=== PATIENT | female | born 1955 | race Caucasian/White ===

== ENCOUNTER 2024-10-03 17:22 | Emergency (ER) | payer MEDICARE, OTHER, SELFPAY ==
--- OUTSIDE RECORDS SUMMARY | 2024-10-03 17:23 | XMS_ITS | Clinical Summary ---
Author Organization Formerly [facility] Address [id number] [place] [id number] Phone Care Team Providers Care Seasonal Sales Associate Name Role Phone Fabian Toussaint MD Primary Care Provider [phone] Allergies No known active allergies Medications metoprolol tartrate (LOPRESSOR) 100 mg tablet Take 100 mg by mouth 2 times daily. Active citalopram (CeleXA) 20 mg tablet Take 20 mg by mouth daily at bedtime. Active raNITIdine (ZANTAC) 150 mg tablet Take 150 mg by mouth 2 times daily. Active ibuprofen (MOTRIN) 800 mg tablet Take 800 mg by mouth every 6 hours as needed for Pain, Mild. Active Social History Tobacco Use Types Packs/Day Years Used Date Smoking Tobacco: Never Smokeless Tobacco: Never Tobacco Cessation:Counseling Given: No Alcohol Use Standard Drinks/Week Comments No 0 (1 standard drink = 0.6 oz pur e alcohol) Comments Unknown Sex and Gender Information Value Date Recorded Sex Assigned at Not on file Legal Sex Female 6:23 AM LAP CUTTER Gender Identity Not on file Sexual Orientation Not on file Last Filed Vital Signs Vital Sign Reading Time Taken Comments Blood Pressure 159/90 03/20/2018 10:44 AM LAP CUTTER Pulse 81 03/20/2018 10:44 AM LAP CUTTER Temperature 36.5 C (97.7 F) 03/20/2018 10:29 AM LAP CUTTER Respiratory Rate 22 03/20/2018 10:44 AM LAP CUTTER Oxygen Saturation 97% 03/20/2018 10:44 AM LAP CUTTER Inhaled Oxygen Concentration - - Weight 107 kg (236 lb) 03/20/2018 9:51 AM LAP CUTTER Height 160 cm (5' 3) 03/20/2018 9:51 AM LAP CUTTER Body Mass Index 41.81 03/20/2018 9:51 AM LAP CUTTER Plan of Treatment Health Maintenance Due Date Last Done Comments DTAP/TDAP/TD VACCINES (1 - Tdap) 09/11/1975 BREAST CANCER SCREENING 1996 FIT-DNA Q 3 years 2001 FIT/FOBT Q 1 year 2001 Flex Sig/CT Colonography Q 5 years 2001 PNEUMOCOCCAL VACCINE 50+ YEA RS (1 of 1 - PCV) 2006 ZOSTER VACCINE (1 of 2) 2006 OSTEOPOROSIS SCREENING 2021 INFLUENZA VACCINE (#1) 2024 COLORECTAL SCREENING 03/20/2028 03/20/2018, 03/20/20 Colorectal Cancer Screening 03/20/2028 RSV VACCINE (60+ or ) (1 - 1-dose 75+ series) 09/11/2031 Procedures Procedure Name Priority Date/Time Associated Diagnosis Comments COLONOSCOPY REPORT 03/20/2018 10 :32 AM LAP CUTTER from Last 3 Months or Most Recently Relevant to Health Maintenance Results * COLONOSCOPY REPORT (03/20/2018 10:32 AM LAP CUTTER) Narrative Procedure Note Alexander Mao MD - 03/20/2018 10:31 AM CST [facility] Endoscopy Patient Name: Susan Honeycutt Procedure Date: 03/20/2018 Date of : 1955 Admit Type: Outpatient Attending MD: Alexander Mao MD Procedure: Colonoscopy Indications: Screening for colorectal malignant neoplasm Providers: Alexander Mao MD Referring MD: Fabian Toussaint MD Medicines: Monitored Anesthesia Care Complications: No immediate complications. Procedure: Informed consent was obtained for the procedure, including moderate sedation after risks were discussed. Based on the pre-procedure assessment, including review of the patient's medical history, medications, allergies, and review of systems, the patient was deemed to be an appropriate candidate for sedation. A timeout was performed. Continuous ECG monitoring, pulse oximetry, blood pressure monitoring, and direct observation were performed. The Colonoscope was introduced through the anus and advanced to the cecum, identified by appendiceal orifice and ileocecal valve. The colonoscopy was performed without difficulty. The patient tolerated the procedure well. The quality of the bowel preparation was good. Findings: The perianal and digital rectal examinations were normal. Two sessile polyps were found in the proximal ascending colon, mid ascending colon, at 80 cm proximal to the anus and at 90 cm proximal to the anus. The polyps were 3 to 4 mm in size. These polyps were removed with a cold snare. Resection and retrieval were complete. Multiple small and large-mouthed diverticula were found in the sigmoid colon, proximal sigmoid colon, mid sigmoid colon and distal sigmoid colon. The exam was otherwise without abnormality on direct and retroflexion views. Impression: - Two 3 to 4 mm polyps in the proximal ascending colon, in the mid ascending colon, at 80 cm proximal to the anus and at 90 cm proximal to the anus, removed with a cold snare. Resected and retrieved. - Diverticulosis in the sigmoid colon, in the proximal sigmoid colon, in the mid sigmoid colon and in the distal sigmoid colon. - The examination was otherwise normal on direct and retroflexion views. Recommendation: - Discharge patient to home (ambulatory). - Repeat colonoscopy in 5 years for screening purposes. - Return to primary care physician as previously scheduled. Procedure Code(s): --- Professional --- 47554, Colonoscopy, flexible; with removal of tumor(s), polyp(s), or other lesion(s) by snare technique CPT copyright 2016 [employer]. All rights reserved. The codes documented in this report are preliminary and upon boring machine operator horizontal review may be revised to meet current compliance requirements. Alexander Mao MD 03/20/2018 10:31:20 AM Number of Addenda: [id number] [place] [address] Alexander Mao MD GI PROCEDURE ORDERABLES Fi nal Result from Last 3 Months or Most Recently Relevant to Health Maintenance Insurance Care Teams Seasonal Sales Associate Relationship Specialty Start Date End Date Fabian Toussaint MD [facility] [place] [address] PCP - General Family Practice 03/13/18
--- OUTSIDE RECORDS SUMMARY | 2024-10-03 17:24 | XMS_ITS | Clinical Summary ---
Author Organization [facility] Address [address] [place] [id number] Phone Care Team Providers Care Senior Patrol Agent Name Role Phone Fabian Toussaint Primary Care Provider [phone] Allergies Active Allergy Reactions Criticality Noted Date Comments Bee Venom Anaphylaxis 01/29/2020 Acetaminophen Hives 01/29/2020 Medications citalopram (CeleXA) 20 MG Tablet Take 20 mg by mouth. Active ibuprofen (MOTRIN) 800 MG Tablet Take 800 mg by mouth. Active metoprolol Succinate (TOPROL-XL) 100 MG TABLET SR 24 HR TAKE 1 TABLET BY MOUTH ONCE DAILY 12/23/2019 Active traMADol (ULTRAM) 50 MG Tablet TAKE 1 TABLET BY MOUTH ONCE DAILY NEEDED FOR PAIN 12/23/2019 Active Active Problems No known active problems Social History Tobacco Use Types Packs/Day Years Used Date Smoking Tobacco: Never Smokeless Tobacco: Never Comments No Sex and Gender Information Value Date Recorded Sex Assigned at Not on file Legal Sex Female 7:53 PM CDT Gender Identity Not on file Sexual Orientation Not on file Last Filed Vital Signs Vital Sign Reading Time Taken Comments Blood Pressure 120/82 01/29/2020 1:44 PM MANAGER ORACLE RETAIL Pulse 62 01/29/2020 1:44 PM MANAGER ORACLE RETAIL Temperature 35.9 C (96.7 F) 01/29/2020 1:44 PM MANAGER ORACLE RETAIL Respiratory Rate 20 01/29/2020 1:44 PM MANAGER ORACLE RETAIL Oxygen Saturation 96% 01/29/2020 1:44 PM MANAGER ORACLE RETAIL Inhaled Oxygen Concentration - - Weight - - Height - - Body Mass Index - - Plan of Treatment Health Maintenance Due Date Last Done Comments Hepatitis C Virus (HCV) Screening 1955 TdaP Immunization 1955 Cologuard 2001 Colonoscopy 2001 Colorectal Cancer Screening 2001 Immunochemical Fecal Occult Blood 2001 Pneumococcal Immunization (5 0+ years) (1 of 1 - PCV) 2006 Zoster Immunization (1 of 2) 2006 SARS-COV-2 Immunization (4 - 2023- season) 2023 03/30/2021, 07/13/2020, 06/15/2020 Influenza Immunization (#1) 2024 Respiratory Syncytial Virus (RSV) Immunization (Adult) (1 - 1-dose 75+ series) 09/11/2031 Hepatitis B Immunization Aged Out No longer eligible based on patient's age to complete this topic Human Papillomavirus (HPV) Immunization Aged Out No longer eligible b ased on patient's age to complete this topic Meningococcal Immunization (ACWY) Aged Out No longer eligible b ased on patient's age to complete this topic Rotavirus Immunization Aged Out No lo nger eligible based on patient's age to complete this topic Insurance Care Teams Senior Patrol Agent Relationship Specialty Start Date End Date Fabian Toussaint [address] [place] [id number] PCP - General 01/29/20
--- OUTSIDE RECORDS SUMMARY | 2024-10-03 17:24 | XMS_ITS | Referral Summary ---
Author Organization [facility] Address [address] [place] [address] Care Team Providers Care It Help Desk Analyst Name Role Phone Fabian Toussaint MD Primary Care Provider + Allergies Active Allergy Reactions Criticality Noted Date Comments Aspirin Hives Medium 09/22/2020 Venom-Honey Bee Anaphylaxis High 01/29/2020 Medications citalopram (CeleXA) 40 mg tablet 09/22/2020 Active lisinopriL (PRINIVIL,ZESTR IL) 10 mg tablet Take 1 tablet (10 mg total) by mouth daily 08/24/2020 Active metoprolol XL (TOPROL-XL) 100 mg 24 hr tablet 09/22/2020 Act jeannine traMADoL (ULTRAM) 50 mg tablet TAKE 1 TABLET BY MOUTH ONCE DAILY NEEDED FOR PAIN 07/02/2020 Active tolterodine LA (DETROL LA) 4 mg 24 hr capsule Take 1 capsule (4 mg total) by mouth daily 05/07/2022 Active valACYclovir (VALTREX) 500 mg tablet PT taking as needed 04/29/[address] (CYMBALTA) 60 mg capsule Take 60 mg by mouth daily 04/29/2022 Active atorvastatin (LIPITOR) 20 mg tablet Take 1 tablet (20 mg total) by mouth nightly 30 tablet 1 05/10/2022 Active metFORMIN (GLUCOPHAGE) 500 mg tablet Take 1 tablet (500 mg total) by mouth 2 (two) times a day 06/13/2022 Active OneTouch Delica Plus Lancet 33 gauge misc USE 1 LANCET TO CHECK GLUCOSE ONCE DAILY 05/25/2022 Active Active Problems Problem Noted Date Diagnosed Date Hyperlipidemia 06/20/2022 Class 3 severe obesity due t o excess calories without serious comorbidity in adult 06/20/2022 Chest pain 05/09/2022 Hyperglycemia Immunizations Immunization Administration Dates Next Due Tdap 09/22/2020 Social History Tobacco Use Types Packs/Day Years Used Date Smoking Tobacco: Never Tobacco Cessation:Counseling Given: Not Answered Alcohol Use Standard Drinks/Week Comments Not Currently 0 (1 standard drink = 0.6 oz pur e alcohol) Personal Safety Answer Date Recorded Getting School Help Needed Not on file 05/13 Comments Unknown Sex and Gender Information Value Date Recorded Sex Assigned at Not on file Legal Sex Female 9:33 AM PROVIDER RELATIONS ADVOCATE Gender Identity Not on file Sexual Orientation Not on file Last Filed Vital Signs Vital Sign Reading Time Taken Comments Blood Pressure 133/84 08/08/2022 2:08 PM CDT Pulse 69 08/08/2022 2:08 PM CDT Temperature 36.1 C (97 F) 05/10/2022 11:23 AM PROVIDER RELATIONS ADVOCATE Respiratory Rate 18 06/20/2022 9:19 AM CDT Oxygen Saturation 95% 05/10/2022 1:40 PM PROVIDER RELATIONS ADVOCATE Inhaled Oxygen Concentration - - Weight 107.5 kg (237 lb) 06/20/2022 9:19 AM CDT Height 161.3 cm (5' 3.5) 06/20/2022 9:19 AM CDT Body Mass Index 41.32 06/20/2022 9:19 AM CDT Plan of Treatment Not on file Medical Devices Implanted Type Area [employer]ine [employer]se Upholsterer Device Identifier Shelf Expiration Date Model / Serial / Lot [employer] Angio-Seal Vip 6fr Closere Device [id number] - [id number] Implanted:Qty: 1 on 05/10/2022 by Argelia Proctor MD at [facility] [employer] 01/21/2023 [id number] / / [id number] Insurance MED[employer] [place] Member Subscriber Plan / Payer (Ef fective 2021-) Name:Susan Honeycutt Relation to Subscriber:Self Name:Susan Honeycutt Payer ID:[id number] Group ID:Not on file Type:COMMERCIAL Address: [facility] [address] [place], [place] MEDICARE [employer] [place] Member Subscriber Plan / Payer (Ef fective 2021) Name:Susan Honeycutt Relation to Subscriber:Self Name:Susan Honeycutt Payer ID:[id number] Group ID:Not on file Type:COMMERCIAL Address: [address] [place], [place] MEDICARE PHYSICIANS [facility] [place] Advance Directives For more information, please contact: [phone] * Full Code (Latest Code Status on File) Date Activated Date Inactivated Comments 05/09/2022 9:42 PM 05/10/2022 9:26 PM Care Teams It Help Desk Analyst Relationship Specialty Start Date End Date Fabian Toussaint MD PCP - General Family Medicine 05/09/22
--- OUTSIDE RECORDS SUMMARY | 2024-10-03 17:24 | XMS_ITS | Clinical Summary ---
Author Organization [facility] Address [address] [place] [address] Care Team Providers Care Loom Tuner Name Role Phone Fabian Toussaint MD Primary [...] Immunization Administration Dates Next Due Tdap 09/22/2020 Medical History Medical History Date Comments Hypertension Depression GERD (gastroesophageal reflux disease) Social History Tobacco Use Types Packs/Day Years [...] on file Legal Sex Female 9:33 AM RAILROAD DINING CAR STEWARDESS Gender Identity Not on file Sexual Orientation Not on file Obstetrics History Last Filed Vital Signs Vital Sign Reading Time Taken Comments Blood Pressure 133/84 08/08/2022 2:08 PM CDT Pulse 69 08/08/2022 2:08 PM CDT Temperature 36.1 C (97 F) 05/10/2022 11:23 AM RAILROAD DINING CAR STEWARDESS Respiratory Rate 18 06/20/2022 9:19 AM CDT Oxygen Saturation 95% 05/10/2022 1:40 PM RAILROAD DINING CAR STEWARDESS Inhaled Oxygen Concentration - - Weight 107.5 kg (237 lb) 06/20/2022 9:19 AM CDT Height 161.3 cm (5' 3.5) 06/20/2022 9:19 AM CDT Body Mass Index 41.32 06/20/2022 9:19 AM CDT Plan of Treatment Health Maintenance Due Date Last Done Comments Breast Cancer Screening-Mammogram 1955 Colon Cancer Screening-Colonoscopy 1955 Depression Screening 1955 Hepatitis C Screening 1955 Osteoporosis Screening-Bone Density Scan 1955 Hepatitis B Screening 1974 Pneumococcal vaccine 65+ (1 of 1 - PCV) 2006 Zoster Vaccine (1 of 2) 2006 Well Visit 65+ 2021 Fall Risk Assessment 05/10/2023 05/10/2022 Covid-19 Vaccine ( season) 2023 03/30/2021, 07/13/2020, 06/15/2020 Influenza Vaccine (#1) 2024 DTaP/Tdap/Td Vaccine (2 - Td or Tdap) 09/22/203004/2020 Medical Devices Implanted Type Area Collateral Analyst Device Identifier Shelf Expiration Date Model / Serial / Lot [employer] Angio-Seal Vip 6fr Closere Device [id number] - [id number] Implanted:Qty: 1 on 05/10/2022 by Argelia Proctor MD at [facility] [employer] 01/21/2023 [id number] / / [id number] Insurance MEDICARE [facility] [employer] [employer] [place] Member Subscriber Plan / Payer (Ef fective 2021-Present) Name:Susan Honeycutt Relation to Subscriber:Self Name:Susan Honeycutt Payer ID:[id number] Group ID:Not on file Type:[employer] Address: [facility] [address] MEDICARE [employer] [place] Member Subscriber Plan / Payer (Ef fective 2021-Present) Name:Susan Honeycutt Relation to Subscriber:Self Name:Susan Honeycutt Payer ID:[id number] Group ID:Not on file Type:[employer] Address: [address] [place] [place] Advance Directives For more information, please contact: [phone] * Full Code (Latest Code Status on File) Date Activated Date Inactivated Comments 05/09/2022 9:42 PM 05/10/2022 9:26 PM Care Teams Loom Tuner Relationship Specialty Start Date End Date Fabian Toussaint MD PCP - General Family Medicine 05/09/22
--- OUTSIDE RECORDS SUMMARY | 2024-10-03 17:24 | XMS_ITS | Clinical Summary ---
Author Organization [facility] Address [facility] [place] [address] Care Team Providers Care Rehabilitation Aide Name Role Phone Fabian Toussaint MD Primary Care Provider [phone] Social History Tobacco Use Types Packs/Day Years Used Date Smoking Tobacco: Never Assessed Comments Unknown Sex and Gender Information Value Date Recorded Sex Assigned at Not on file Legal Sex Female 4:53 PM CDT Gender Identity Not on file Sexual Orientation Not on file Plan of Treatment Health Maintenance Due Date Last Done Comments Colorectal Cancer Screening Colonoscopy (10 Years) 1955 Hepatitis C 1974 Mammogram Screening 1996 Pneumococcal Vaccine: 50+ Ye ars (1 of 1 - PCV) 2006 Zoster Vaccines (1 of 2) 2006 Dexa Scan (General) 2021 COVID-19 Vaccine (1 - 2023-2 5 season) 2023 DTaP, Tdap and Td Vaccines ( 2 - Td or Tdap) 09/22/2030 09/22/2020 RSV Immunization or 60+ Years (1 - 1-dose 75+ series) 09/11/2031 Meningococcal B Vaccine Aged Out No l onger eligible based on patient's age to complete this topic Meningococcal Vaccine Aged Out No dane mike eligible based on patient's age to complete this topic RSV Immunizations Under 20 Months Aged Out No longer eligible based on patient's age to complete this topic Care Teams Rehabilitation Aide Relationship Specialty Start Date End Date Fabian Toussaint MD [address] [place] [id number] PCP - General 10/24/11
[2024-10-03 17:26] VITALS: BP 139/87; PULSE 78; RESP 20; TEMP 36.6; O2SAT 100
--- NOTE | 2024-10-03 17:30 | ED_ITS ---
HPI - General Adult General Chief complaint: Eye Problems Stated complaint: right eye Time Seen by Provider: 10/03/24 17:31 Source: patient Mode of arrival: ambulatory Limitations: no limitations History of Present Illness HPI narrative: 69-year-old female patient presents to the [facility] with complaints of right eye pain that started about 2 days ago. Patient states the pain worsened today and is painful especially when touching it. Denies any sensitivity to light. Patient states yesterday it was kind of itchy. Denies any discharge coming from the eye. Denies any fevers body aches or chills Related Data Home Medications ?Medication ?Instructions ?Recorded ?Confirmed ?Last Taken ?Type atorvastatin 20 mg tablet mg 10/03/24 Unknown History diclofenac sodium 75 mg mg PO 10/03/24 Unknown History tablet,delayed release duloxetine 60 mg capsule,delayed mg PO 10/03/24 Unknown History release lisinopril 20 mg tablet mg 10/03/24 Unknown History metformin 500 mg tablet mg 10/03/24 Unknown History metoprolol succinate 100 mg mg PO 10/03/24 Unknown History tablet,extended release 24 hr tirzepatide 5 mg/0.5 mL mg subcut 10/03/24 Unknown History subcutaneous pen injector (Mounjaro) Allergies Allergy/AdvReac Type Severity Reaction Status Date / Time aspirin Allergy Hives Verified 10/03/24 17:38 hydrocodone Allergy Hives Verified 10/03/24 17:38 bee venom protein (honey bee) AdvReac Itching Verified 10/03/24 17:38 Review of Systems Review of Systems: CONSTITUTIONAL: Denies fever, chills, or sweats. EYES: Denies visual changes, redness, or discharge. positive tenderness to right eye ENT: Denies rhinorrhea, congestion, sore throat, or otalgia. CARDIOVASCULAR: Denies chest pain, palpitations, or edema. RESPIRATORY: Denies cough or dyspnea. GASTROINTESTINAL: Denies abdominal pain, nausea, vomiting, or diarrhea. GENITOURINARY: Denies dysuria or hematuria. SKIN: Denies rash or itching. MUSCULOSKELETAL: Denies back pain, joint pain, or myalgia. NEUROLOGIC: Denies headache, numbness, or weakness. PSYCHIATRIC: Denies anxiety or depression. [facility] Past Medical History Medical History No significant past medical history Surgical History Surgical History History of total right knee replacement Social History Social History Smoking status: Never smoker Comments At the time of my signature I agree with nursing past medical history, surgical, social, and family history. There is no relevant family history pertinent to the presenting complaint. Exam Narrative: GENERAL: Well-appearing, well-nourished, and in no acute distress. HEAD: Normocephalic, atraumatic. EYES: PERRLA and EOMI. upon examination of the right eye within the upper lid was flipped the internal hordeolum was noted to the lateral side of the internal upper lid. Tenderness did occur on palpation with a cotton tip applicator. No erythema or injection noted to sclera no obvious corneal abrasions noted within the eye was stained and examined under Wood's lamp ENT: Nares clear, no rhinorrhea or epistaxis. Mucous membranes moist. NECK: Supple. No lymphadenopathy CHEST: Clear to auscultation. No respiratory distress. HEART: Regular rate and rhythm. No murmur heard. Normal peripheral pulses. ABDOMEN: Soft, nontender, nondistended, normal active bowel sounds. EXTREMITIES: Normal range of motion. No edema. SKIN: Warm, dry, no rash. NEURO: No focal deficits. Alert and oriented x3. Course Course Level of Care: Express Care Visit Vital Signs Vital signs: Vital Signs Temperature 36.6 C 10/03/24 17:26 Pulse Rate 78 10/03/24 17:26 Respiratory Rate 20 10/03/24 17:26 Blood Pressure 139/87 10/03/24 17:26 Pulse Oximetry 100 10/03/24 17:26 Oxygen Delivery Room Air 10/03/24 17:26 Temperature 36.6 C 10/03/24 17:26 Pulse Rate 78 10/03/24 17:26 Respiratory Rate 20 10/03/24 17:26 Blood Pressure 139/87 10/03/24 17:26 Pulse Oximetry 100 10/03/24 17:26 Oxygen Delivery Room Air 10/03/24 17:26 Vital signs reviewed. Medical Decision Making MDM Narrative Medical decision making narrative: of care for patient is to discharge home with erythromycins ointment and encourage warm compresses to the right eye for the internal hordeolum. Patient verbalized understanding denies any other questions or concerns at this time. Differential Diagnosis Differential Diagnosis: Differential diagnosis: Conjunctivitis, foreign body, corneal ulcer, Keratitis, dendritic lesions, corneal abrasion, very orbital infection, orbital cellulitis, orbital pain, acute narrow angle glaucoma, detached retina, central retinal artery occlusion, complete hyphema, vitreous hemorrhage, optic neuritis, globe disruption Vital Signs Vital Signs: Vital Signs Temperature 36.6 C 10/03/24 17:26 Pulse Rate 78 10/03/24 17:26 Respiratory Rate 20 10/03/24 17:26 Blood Pressure 139/87 10/03/24 17:26 Pulse Oximetry 100 10/03/24 17:26 Oxygen Delivery Room Air 10/03/24 17:26 Temperature 36.6 C 10/03/24 17:26 Pulse Rate 78 10/03/24 17:26 Respiratory Rate 20 10/03/24 17:26 Blood Pressure 139/87 10/03/24 17:26 Pulse Oximetry 100 10/03/24 17:26 Oxygen Delivery Room Air 10/03/24 17:26 Critical Care Time Critical Care Time Critical Care Time: No Discharge Plan Discharge Clinical Impression: Hordeolum internum of right upper eyelid Patient Disposition: Home Condition: Stable Instructions: Antibiotic Form, Stye (ED) Additional Instructions: A stye is a lump on the edge or inside of your eyelid caused by an infection. A stye can form on your upper or lower eyelid. It usually goes away in 2 to 4 days. DISCHARGE INSTRUCTIONS: Medicines: Antibiotic medicine: This is given as an ointment to put into your eye. It is used to fight an infection caused by bacteria. Use as directed. Take your medicine as directed. Contact your healthcare provider if you think your medicine is not helping or if you have side effects. Tell him of her if you are allergic to any medicine. Keep a list of the medicines, vitamins, and herbs you take. Include the amounts, and when and why you take them. Bring the list or the pill bottles to follow-up visits. Carry your medicine list with you in case of an emergency. Follow up with your healthcare provider as directed: Write down your questions so you remember to ask them during your visits. Self-care: Use warm compresses: This will help decrease swelling and pain. Wet a clean washcloth with warm water and place it on your eye for 10 to 15 minutes, 3 to 4 times each day or as directed. Keep your hands away from your eye: This helps to prevent the spread of the infection to other parts of the eye. Wash your hands often with soap and dry with a clean towel. Do not squeeze the stye. Do not use eye makeup: Do not wear eye makeup while you have a stye. Eye makeup may carry bacteria and cause another stye. Throw away eye makeup and brushes used to apply the makeup. Use new eye makeup after the stye has gone away. Do not share eye makeup with others. Prevent another stye: Wash your face and clean your eyelashes every day. Remove eye makeup with makeup remover. This helps to completely remove eye makeup without heavy rubbing. Contact your healthcare provider if: You have redness and discharge around your eye, and your eye pain is getting worse. Your vision changes. The stye has not gone away within 7 days. The stye comes back within a short period of time after treatment. You have questions or concerns about your condition or care. Patient Language: Turkish Prescriptions: New erythromycin 5 mg/gram (0.5 %) ointment 1 applic RIGHT EYE DAILY 5 Days Qty: 3.5 0RF No Action metformin 500 mg tablet atorvastatin 20 mg tablet lisinopril 20 mg tablet metoprolol succinate 100 mg tablet extended release 24 hr PO diclofenac sodium 75 mg tablet,delayed release (DR/EC) PO duloxetine 60 mg capsule,delayed release(DR/EC) PO Mounjaro 5 mg/0.5 mL pen injector SUBCUT Follow-up/Referrals: Norbert,Fabian Morales MD [Primary Care Provider] - Time of Disposition: 17:53
== END 2024-10-03 17:57 | disposition home or self-care (01) ==
PROVIDERS: Emergency Provider Nurse Practitioner Family; PCP Family Medicine
DX: H00.021 Hordeolum internum right upper eyelid (principal)
CPT/HCPCS: 99213; A9270; G0463